=== PATIENT | male | born 1990 | race Caucasian/White ===

== ENCOUNTER 2018-11-11 22:10 | Emergency (ER) | payer MEDICAID ==
[~2018-11-11] VITALS: Ht 165.1 cm; Wt 54.4 kg
--- NOTE | 2018-11-11 22:10 | NUR ---
[facility] at bedside.
--- NOTE | 2018-11-11 22:13 | NUR ---
Dr. Peacock at bedside for MSE.
--- NOTE | 2018-11-11 22:15 | NUR ---
Pt's mother at bedside.
[2018-11-11 22:26] LABS: BASOPHILS # (AUTO) 0.1 K/uL (0.0-8.0); BASOPHILS % (AUTO) 1.2 % (0.0-2.0); EOSINOPHILS # (AUTO) 0.1 K/uL (0.0-0.7); EOSINOPHILS % (AUTO) 0.9 % (0.0-7.0); HEMATOCRIT 46.5 % (36.7-47.1); HEMOGLOBIN 15.5 g/dL (12.5-16.3); LYMPHOCYTES # (AUTO) 3.7 K/uL (20.0-40.0); LYMPHOCYTES % (AUTO) 53.4 % (20.5-51.5); MEAN CORPUSCULAR HEMOGLOBIN 32.1 uug (23.8-33.4); MEAN CORPUSCULAR HGB CONC 33 g/dL (32.5-36.3); MONOCYTES # (AUTO) 0.3 K/uL (2.0-10.0); MONOCYTES % (AUTO) 3.9 % (0.0-11.0); NEUTROPHILS # (AUTO) 2.8 K/uL (1.8-8.9); NEUTROPHILS % (AUTO) 40.6 % (38.5-71.5); PLATELET COUNT (AUTO) 315 K/uL (152-348); RED BLOOD CELL COUNT(AUTO) 4.84 MIL/uL (4.06-5.63); WHITE BLOOD COUNT (AUTO) 6.9 K/uL (3.6-10.2)
[2018-11-11 22:35] LABS: CARBON DIOXIDE 31 mmol/L (21-32); CHLORIDE 99 mmol/L (98-107); CREATININE 0.6 mg/dL (0.6-1.3); GLUCOSE 97 mg/dL (74-106); UREA NITROGEN, BLOOD 9 mg/dL (7-18)
[2018-11-11 22:40] LABS: ETHANOL 243 MG/DL (0-0)
[2018-11-11 22:41] LABS: ALANINE AMINOTRANSFERASE 53 U/L (16-63); ALKALINE PHOSPHATASE 73 U/L (50-136); ASPARTATE AMINOTRANSFERASE 96 U/L (15-37); BILIRUBIN,DIRECT 0.3 mg/dL (0.0-0.2); BILIRUBIN,TOTAL 0.8 mg/dL (0.2-1.0); TOTAL PROTEIN, SERUM 8.2 g/dL (6.4-8.2)
[2018-11-11 22:42] LABS: ACETAMINOPHEN < 2.0 ug/mL (10-30)
--- NOTE | 2018-11-11 23:02 | NUR ---
Pt provided urine sample, sent to lab.
[2018-11-11 23:21] LABS: *AMPHETAMINE, URINE NEGATIVE (NEGATIVE); *BARBITURATE, URINE NEGATIVE (NEGATIVE); *CANNABINOID, URINE POSITIVE (NEGATIVE); *COCCAINE, URINE NEGATIVE (NEGATIVE); *OPIATE, URINE NEGATIVE (NEGATIVE); *PHENCYCLIDINE SCREEN,URINE NEGATIVE (NEGATIVE)
--- NOTE | 2018-11-12 02:58 | NUR ---
Pt in bed, no acute signs of distress. Mother at bedside.
--- NOTE | 2018-11-12 05:51 | NUR ---
Pt sleeping in bed, no acute signs of distress, mother at bedside.
--- NOTE | 2018-11-12 07:02 | NUR ---
Report given to Consuelo Wei RN.
--- NOTE | 2018-11-12 07:03 | NUR ---
report received from Libr[facility] MAY. patient sleeping, mother st the bedside.
--- NOTE | 2018-11-12 07:28 | NUR ---
call to Crisis team Milo Capps for eval. will be here around 0900
--- NOTE | 2018-11-12 08:27 | NUR ---
kdur 40Meq given po with food and liquids.
[2018-11-12] MEDS ORDERED: POTASSIUM CHLORIDE 20 MEQ TAB.PRT.SR ONE (08:28)
[2018-11-12] MEDS ORDERED: POTASSIUM CHLORIDE 20 MEQ TAB.PRT.SR PO ONE (08:30)
--- NOTE | 2018-11-12 08:45 | NUR ---
Milo Capps ETA 40minutes
--- NOTE | 2018-11-12 10:04 | NUR ---
KELLY here and evaluated patient
[2018-11-12 10:51] VITALS: BP 134/94
== END 2018-11-12 10:52 | disposition home or self-care (01) ==
LOC: ER 22:10
DX: T39.312A Poisoning by propionic acid derivatives, intentional self-harm, initial encounter (principal); F17.290 Nicotine dependence, other tobacco product, uncomplicated; Y92.89 Other specified places as the place of occurrence of the external cause
CPT/HCPCS: 36415 ×2; 80048; 80076; 80307; 85025; 93005; 99284; 99406; G0480 ×3; G0481; A4663